=== PATIENT | female | born 1955 | race Caucasian/White ===

== ENCOUNTER 2016-06-20 11:59 | Emergency (ER) | payer BC ==
[~2016-06-20] VITALS: Ht 154.9 cm; Wt 73.0 kg
[2016-06-20 12:06] VITALS: BP 156/66; PULSE 82; RESP 24; TEMP 99.1; O2SAT 97
[2016-06-20 12:22] VITALS: BP 143/82; PULSE 89; RESP 29; TEMP 98.7; O2SAT 95
[2016-06-20] MEDS ORDERED: SODIUM CHLOR 0.9% 1000 ML INJ 1,000 ML IV SCH (12:26)
--- NOTE | 2016-06-20 12:29 | PD ---
HPI Chief Complaint: GI Complaint Time Seen by Provider: 12:29 Travel History International Travel<30 days: No Contact w/Intl Traveler<30days: No Traveled to known affect area: No History of Present Illness HPI 60-year-old female with a history of hypertension presents to the emergency department for evaluation of left lower quadrant abdominal pain. Patient states that yesterday she began to have sharp stabbing left lower quadrant abdominal pain. States that last night the pain improved after taking ibuprofen. States that this morning the pain returned and has been getting much worse. States that the pain is severe. Aggravated with palpation and walking. Denies any alleviating factors. States that she is also feeling nauseous and had some dry heaving this morning. Denies any fever, chills, diarrhea, constipation, bloody stool, burning with urination, painful urination , hematuria. Denies any prior abdominal surgeries. States that she is here visiting for bike week from [place]. No other complaints. PFSH Past Medical History Hypertension: Yes Social History Alcohol Use: Yes (5 beers daily) Tobacco Use: No Allergies-Medications (Allergen,Severity, Reaction): Coded Allergies: Penicillin (Verified Allergy, Unknown, 06/20/16) Review of Systems Except as stated in HPI: all other systems reviewed are Neg Physical Exam Narrative GENERAL: Well-nourished and well-developed pleasant patient in moderate amount of pain but no acute distress. SKIN: Warm and dry. HEAD: Normocephalic and atraumatic. EYES: No injection, drainage, or hyphema noted. PERRLA. EOMI. ENT: No nasal drainage noted. Oropharynx is clear. NECK: Supple and the trachea is midline. CARDIOVASCULAR: Regular rate and rhythm. RESPIRATORY: Breath sounds are equal bilaterally with no accessory muscle use, wheezing, rhonchi, or crackles. GASTROINTESTINAL: Left lower quadrant tenderness to palpation with guarding. Negative Varner sign. Negative McBurney's point. Abdomen is soft and nondistended. MUSCULOSKELETAL: No obvious deformities, swelling, cyanosis, or ecchymosis is present throughout the upper and lower extremities. Patient has full range of motion without any signs of neurovascular compromise. NEUROLOGICAL: Awake, alert, and oriented. Normal speech and gait. Cranial nerves are grossly intact. Data Data Last Documented VS Vital Signs Date Time Temp Pulse Resp B/P Pulse Ox O2 Delivery O2 Flow Rate FiO2 06/20/16 12:33 95 Room Air 06/20/16 12:22 98.7 89 29 143/82 Orders Complete Blood Count With Diff (06/20/16 12:26) Comprehensive Metabolic Panel (06/20/16 12:26) Lipase (06/20/16 12:26) Prothrombin Time / Inr (Pt) (06/20/16 12:26) Act Partial Throm Time (Ptt) (06/20/16 12:26) Urinalysis - C+S If Indicated (06/20/16 12:26) Ct Abd/Pel W Iv Contrast(Rout) (06/20/16 12:26) Iv Access Insert/Monitor (06/20/16 12:26) Ecg Monitoring (06/20/16 12:26) Oximetry (06/20/16 12:26) Ondansetron Inj (Zofran Inj) (06/20/16 12:30) Sodium Chlor 0.9% 1000 Ml Inj (Ns 1000 M (06/20/16 12:26) Sodium Chloride 0.9% Flush (Ns Flush) (06/20/16 12:30) Morphine Inj (Morphine Inj) (06/20/16 12:30) Iohexol 350 Inj (Omnipaque 350 Inj) (06/20/16 14:18) Acetamin-Hydrocod 325-5 Mg ([place] 5-325 (06/20/16 14:45) Labs Laboratory Tests Test 06/20/16 06/20/16 12:45 13:40 White Blood Count 8.4 TH/MM3 Red Blood Count 4.68 MIL/MM3 Hemoglobin 14.4 GM/DL Hematocrit 43.0 % Mean Corpuscular Volume 91.8 FL Mean Corpuscular Hemoglobin 30.7 PG Mean Corpuscular Hemoglobin 33.4 % Concent Red Cell Distribution Width 14.6 % Platelet Count 196 TH/MM3 Mean Platelet Volume 9.1 FL Neutrophils (%) (Auto) 84.0 % Lymphocytes (%) (Auto) 9.9 % Monocytes (%) (Auto) 4.9 % Eosinophils (%) (Auto) 0.7 % Basophils (%) (Auto) 0.5 % Neutrophils # (Auto) 7.1 TH/MM3 Lymphocytes # (Auto) 0.8 TH/MM3 Monocytes # (Auto) 0.4 TH/MM3 Eosinophils # (Auto) 0.1 TH/MM3 Basophils # (Auto) 0.0 TH/MM3 CBC Comment DIFF FINAL Differential Comment Prothrombin Time 11.2 SEC Prothromb Time International 1.0 RATIO Ratio Activated Partial 25.7 SEC Thromboplast Time Sodium Level 132 MEQ/L Potassium Level 4.2 MEQ/L Chloride Level 96 MEQ/L Carbon Dioxide Level 23.9 MEQ/L Anion Gap 12 MEQ/L Blood Urea Nitrogen 10 MG/DL Creatinine 1.14 MG/DL Estimat Glomerular Filtration 48 ML/MIN Rate Random Glucose 137 MG/DL Calcium Level 8.8 MG/DL Total Bilirubin 0.8 MG/DL Aspartate Amino Transf 47 U/L (AST/SGOT) Alanine Aminotransferase 69 U/L (ALT/SGPT) Alkaline Phosphatase 53 U/L Total Protein 8.1 GM/DL Albumin 3.9 GM/DL Lipase 142 U/L Urine Color YELLOW Urine Turbidity CLEAR Urine pH 5.5 Urine Specific [place] 1.010 Urine Protein TRACE mg/dL Urine Glucose (UA) NEG mg/dL Urine Ketones 10 mg/dL Urine Occult Blood NEG Urine Nitrite NEG Urine Bilirubin NEG Urine Urobilinogen LESS THAN 2.0 MG/DL Urine Leukocyte Esterase NEG Urine RBC LESS THAN 1 /hpf Urine WBC 1 /hpf Urine Squamous Epithelial 1 /hpf Cells Urine Transitional Epithelial <1 /hpf Cells Urine Hyaline Casts 1 /lpf Urine Mucus FEW /lpf Microscopic Urinalysis Comment CULT NOT INDICATED MDM Medical Decision Making Medical Screen Exam Complete: Yes Emergency Medical Condition: Yes Differential Diagnosis Diverticulitis versus colitis versus pancreatitis versus Kidney stone versus urinary tract infection Narrative Course 60-year-old female presents to the emergency department for evaluation of left lower quadrant abdominal pain with nausea and vomiting. Patient is afebrile, vital signs are stable. She does have significant left lower quadrant tenderness to palpation. IV access is obtained, labs were drawn and sent. Patient is administered morphine 4 mg IV, Zofran 4 mg IV and IV fluids. CT of the abdomen and pelvis has been ordered and is pending. CBC is unremarkable. CMP shows mild renal insufficiency with a creatinine of 1.14, GFR 48. No prior for comparison. LFTs slightly elevated, likely secondary to alcohol use. Coags were unremarkable. Urinalysis shows 10 ketones and few mucus. CT of the abdomen and pelvis shows sigmoid diverticulitis without abscess or perforation. Patient has remained stable and without complaint while here in the emergency department. Reporting improvement of symptoms after pain medication and antiemetics. She'll be discharged with antibiotics and pain control. Advised follow-up with her PCP. Patient verbalizes understanding and agreement with treatment plan. I discussed the case with my attending physician Dr. Penn who is aware of the patients history, physical examination findings, and treatment plan. Diagnosis Primary Impression: Diverticulitis Qualified Code: K57.32 - Diverticulitis of large intestine without perforation or abscess without bleeding Referrals: Primary Care Physician Patient Instructions: Diverticulitis (ED), General Instructions Additional Instructions: Take medications as prescribed. Do not take Lortab with alcohol or while driving. Follow-up with your Primary Care Physician. Return to the ED for any acute worsening of symptoms. Med/Other Pt SpecificInfo: Prescription(s) given Scripts Hydrocodone-Acetaminophen (Lortab)5-325 Mg Tab1 Tab PO Q6H PRN (PAIN) #12 TAB Ref 0 Prov:Schuyler Penn MD 06/20/16 Metronidazole (Flagyl)500 Mg [id number] Mg PO TID 10 Days Ref 0 Prov:Schuyler Penn MD 06/20/16 Ciprofloxacin (Cipro)500 Mg [id number] Mg PO BID 10 Days Ref 0 Prov:Schuyler Penn MD 06/20/16 Disposition: 01 DISCHARGE HOME Condition: Stable Fiona Gant Jun 20, 2016 12:29
[2016-06-20] MEDS ORDERED: ONDANSETRON HCL 4 MG/2 ML VIAL IVP ONE (12:30)
[2016-06-20] MEDS ORDERED: SODIUM CHLORIDE 0.9% FLUSH 5 ML FLUSH IVF PRN (12:30)
[2016-06-20] MEDS ORDERED: MORPHINE SULFATE 4 MG/ML INJ IV PUSH ONE (12:30)
[2016-06-20 12:33] VITALS: O2SAT 95
[2016-06-20 12:53] LABS: AUTOMATED NEUTROPHIL # 7.1 TH/MM3 (1.8-7.7); BASOPHIL % 0.5 % (0.0-2.0); EOSINOPHIL # 0.1 TH/MM3 (0-0.4); EOSINOPHIL % 0.7 % (0.0-4.0); HEMO FLAGS DIFF FINAL; LYMPH % 9.9 % (9.0-44.0); LYMPHOCYTE # 0.8 TH/MM3 (1.0-4.8); MEAN CELL VOLUME 91.8 FL (80.0-100.0); MEAN CORPUSCULAR HEMOGLOBIN 30.7 PG (27.0-34.0); MEAN CORPUSCULAR HGB CONC 33.4 % (32.0-36.0); MONO % 4.9 % (0.0-8.0); PLATELET COUNT 196 TH/MM3 (150-450); RED BLOOD COUNT 4.68 MIL/MM3 (4.00-5.30); RED CELL DISTRIBUTION WIDTH 14.6 % (11.6-17.2); WHITE BLOOD COUNT 8.4 TH/MM3 (4.0-11.0)
[2016-06-20 13:03] LABS: APTT (PATIENT) 25.7 SEC (24.3-30.1); PROTHROMBIN TIME - PATIENT 11.2 SEC (9.8-11.6)
[2016-06-20 13:11] LABS: ALKALINE PHOSPHATASE 53 U/L (45-117); TOTAL BILIRUBIN ADULT 0.8 MG/DL (0.2-1.0)
[2016-06-20 13:13] LABS: ALT (GPT) 69 U/L (10-53); ANION GAP 12 MEQ/L (5-15); AST (GOT) 47 U/L (15-37); BICARBONATE 23.9 MEQ/L (21.0-32.0); BLOOD UREA NITROGEN 10 MG/DL (7-18); CHLORIDE 96 MEQ/L (98-107); GLOMERULAR FILTRATION RATE 48 ML/MIN (>89); POTASSIUM 4.2 MEQ/L (3.5-5.1); SODIUM (NA) 132 MEQ/L (136-145)
[2016-06-20 13:59] LABS: BLOOD, URINE NEG (NEG); GLUCOSE,URINE NEG (NEG); HYALINE CAST, URINE 1 /lpf (RARE); KETONE, URINE 10 mg/dL (NEG); MUCUS URINE FEW /lpf (OCC); NITRITE,URINE NEG (NEG); PH, URINE 5.5 (5.0-8.5); SQUAMOUS EPITHELIAL CELL URINE 1 /hpf (0-5); TRANSITIONAL EPI CELLS, URINE <1 /hpf; URINE COLOR YELLOW (YELLW/STRAW)
[2016-06-20 14:08] LABS: COMMENT (UR) CULT NOT INDICATED; CULTURE IF INDICATED CULT NOT INDICATED
[2016-06-20] MEDS ORDERED: IOHEXOL 350 MG/ML 10 ML VIAL (for RAD DIAG) IV ONE (14:18)
--- NOTE | 2016-06-20 14:26 | RADRPT ---
EXAM DATE/TIME: 06/20/2016 13:46 [facility] COMPARISON: No previous studies available for comparison. INDICATIONS: Left lower quadrant pain starting last night, vomiting. IV CONTRAST: 75 cc Omnipaque 350 (iohexol) IV ORAL CONTRAST: No oral contrast ingested. RADIATION DOSE: 16.49 CTDIvol (mGy) MEDICAL HISTORY: Hypoglycemia SURGICAL HISTORY: None. ENCOUNTER: Initial ACUITY: 1 day PAIN SCALE: 8/10 LOCATION: Left abdomen TECHNIQUE: Volumetric scanning of the abdomen and pelvis was performed. Using automated exposure control and ad justment of the mA and/or kV according to patient size, radiation dose was kept as low as reasonably achievable to obtain optimal diagnostic quality images. FINDINGS: There is inflammatory changes seen in the left lower quadrant adjacent to the proximal sigmoid colon. There are diverticula in this region. A focal abscess is not seen. There is small amount of free fluid seen i n the pelvis. There is diffuse fatty infiltration in the liver. There are several hypodensities in the liver likel y representing cyst or hemangiomas. These measure up to 1.8 cm. They are nonspecific. The spleen, pancreas, adrenal gl ands and kidneys appear grossly normal. There are scattered atherosclerotic calcifications seen throughout th e arterial system but no aneurysm is present. Calcifications are seen at the uterus likely from leiomyomatous c hange. There is some minimal suspected atelectasis at the posterior lung bases being worse on the left. Bon y structures are grossly intact. CONCLUSION: 1. Suspected diverticulitis at the proximal sigmoid colon. 2. Fatty infiltration of the liver with several hepatic lesions likely representing cyst or hemangio mas. Stiven Saucedo MD on June 20, 2016 at 14:13 Board Certified Radiologist. This report was verified electronically.
[2016-06-20] MEDS ORDERED: CIPR-9 PO (14:39)
[2016-06-20] MEDS ORDERED: HYDR-3533 PO (14:39)
[2016-06-20] MEDS ORDERED: METR-1 PO (14:39)
--- NOTE | 2016-06-20 14:40 | PD ---
Physical Exam Date Seen by Provider: Jun 20, 2016 Time Seen by Provider: 12:30 Narrative I, Dr. Penn, have reviewed the advance practice practitioner's documentation and am in agreement, met with the patient face to face, made the diagnosis, and the medical decision making was done by me. *My assessment and Findings: Patient seen and evaluated with PA, please see PA note for further details. Here with left lower quadrant abdominal pain, tender to palpation of the left lower quadrant with no guarding or rebound. Laboratory Tests Test 06/20/16 06/20/16 12:45 13:40 Neutrophils (%) (Auto) 84.0 % (16.0-70.0) Lymphocytes # (Auto) 0.8 TH/MM3 (1.0-4.8) Sodium Level 132 MEQ/L (136-145) Chloride Level 96 MEQ/L (98-107) Creatinine 1.14 MG/DL (0.50-1.00) Estimat Glomerular Filtration 48 ML/MIN (>89) Rate Random Glucose 137 MG/DL (74-106) Aspartate Amino Transf 47 U/L (15-37) (AST/SGOT) Alanine Aminotransferase 69 U/L (10-53) (ALT/SGPT) Urine Ketones 10 mg/dL (NEG) Urine Mucus FEW /lpf (OCC) CAT scan shows signs of diverticulitis. At this point, my plan would be to release the patient with antibiotic therapy and symptomatic therapy for pain and follow-up to primary care physician. Return for any worsening in symptoms as needed. The plan was discussed with her and she states understanding. Data Data Last Documented VS Vital Signs Date Time Temp Pulse Resp B/P Pulse Ox O2 Delivery O2 Flow Rate FiO2 06/20/16 12:33 95 Room Air 06/20/16 12:22 98.7 89 29 143/82 Orders Complete Blood Count With Diff (06/20/16 12:26) Comprehensive Metabolic Panel (06/20/16 12:26) Lipase (06/20/16 12:26) Prothrombin Time / Inr (Pt) (06/20/16 12:26) Act Partial Throm Time (Ptt) (06/20/16 12:26) Urinalysis - C+S If Indicated (06/20/16 12:26) Ct Abd/Pel W Iv Contrast(Rout) (06/20/16 12:26) Iv Access Insert/Monitor (06/20/16 12:26) Ecg Monitoring (06/20/16 12:26) Oximetry (06/20/16 12:26) Ondansetron Inj (Zofran Inj) (06/20/16 12:30) Sodium Chlor 0.9% 1000 Ml Inj (Ns 1000 M (06/20/16 12:26) Sodium Chloride 0.9% Flush (Ns Flush) (06/20/16 12:30) Morphine Inj (Morphine Inj) (06/20/16 12:30) Iohexol 350 Inj (Omnipaque 350 Inj) (06/20/16 14:18) Acetamin-Hydrocod 325-5 Mg ([place] 5-325 (06/20/16 14:45) Labs Laboratory Tests Test 06/20/16 06/20/16 12:45 13:40 White Blood Count 8.4 TH/MM3 Red Blood Count 4.68 MIL/MM3 Hemoglobin 14.4 GM/DL Hematocrit 43.0 % Mean Corpuscular Volume 91.8 FL Mean Corpuscular Hemoglobin 30.7 PG Mean Corpuscular Hemoglobin 33.4 % Concent Red Cell Distribution Width 14.6 % Platelet Count 196 TH/MM3 Mean Platelet Volume 9.1 FL Neutrophils (%) (Auto) 84.0 % Lymphocytes (%) (Auto) 9.9 % Monocytes (%) (Auto) 4.9 % Eosinophils (%) (Auto) 0.7 % Basophils (%) (Auto) 0.5 % Neutrophils # (Auto) 7.1 TH/MM3 Lymphocytes # (Auto) 0.8 TH/MM3 Monocytes # (Auto) 0.4 TH/MM3 Eosinophils # (Auto) 0.1 TH/MM3 Basophils # (Auto) 0.0 TH/MM3 CBC Comment DIFF FINAL Differential Comment Prothrombin Time 11.2 SEC Prothromb Time International 1.0 RATIO Ratio Activated Partial 25.7 SEC Thromboplast Time Sodium Level 132 MEQ/L Potassium Level 4.2 MEQ/L Chloride Level 96 MEQ/L Carbon Dioxide Level 23.9 MEQ/L Anion Gap 12 MEQ/L Blood Urea Nitrogen 10 MG/DL Creatinine 1.14 MG/DL Estimat Glomerular Filtration 48 ML/MIN Rate Random Glucose 137 MG/DL Calcium Level 8.8 MG/DL Total Bilirubin 0.8 MG/DL Aspartate Amino Transf 47 U/L (AST/SGOT) Alanine Aminotransferase 69 U/L (ALT/SGPT) Alkaline Phosphatase 53 U/L Total Protein 8.1 GM/DL Albumin 3.9 GM/DL Lipase 142 U/L Urine Color YELLOW Urine Turbidity CLEAR Urine pH 5.5 Urine Specific [place] 1.010 Urine Protein TRACE mg/dL Urine Glucose (UA) NEG mg/dL Urine Ketones 10 mg/dL Urine Occult Blood NEG Urine Nitrite NEG Urine Bilirubin NEG Urine Urobilinogen LESS THAN 2.0 MG/DL Urine Leukocyte Esterase NEG Urine RBC LESS THAN 1 /hpf Urine WBC 1 /hpf Urine Squamous Epithelial 1 /hpf Cells Urine Transitional Epithelial <1 /hpf Cells Urine Hyaline Casts 1 /lpf Urine Mucus FEW /lpf Microscopic Urinalysis Comment CULT NOT INDICATED MDM Medical Record Reviewed: Yes Supervised Visit with ESEQUIEL: Yes Diagnosis Primary Impression: Diverticulitis Disposition: 01 DISCHARGE HOME Condition: Stable SoonSchuyler chang MD Jun 20, 2016 14:40
[2016-06-20] MEDS ORDERED: ACETAMINOPHEN/HYDROcodone 325 MG/5 MG TAB PO ONE (14:45)
== END 2016-06-20 15:45 | disposition home or self-care (01) ==
LOC: NEPC 11:59
DX: K57.32 Diverticulitis of large intestine without perforation or abscess without bleeding (principal); R11.2 Nausea with vomiting, unspecified; I10 Essential (primary) hypertension
CPT/HCPCS: 74177; 80053; 81001; 83690; 85025; 85610; 85730; 96361; 96374; 99284; J2270; J7030; Q9967